=== PATIENT | female | born 1975 | race American Indian/Alaskan Native ===

== ENCOUNTER 2016-09-01 21:58 | Emergency (ER) | payer MEDICAID ==
[2016-09-01 22:41] VITALS: BP 141/96
[2016-09-01 23:26] LABS: Anion Gap 18 mmol/L; Blood Urea Nitrogen 10 mg/dL (7-17); Calcium 9.3 mg/dL (8.4-10.2); Carbon Dioxide 23 mmol/L (22-30); Chloride 100.2 mmol/L (98-107); Glucose 102 mg/dL (65-100); Potassium 3.7 mmol/L (3.6-5.0); Sodium 137 mmol/L (137-145)
[2016-09-01 23:30] LABS: Eosinophils % (Auto) 1.9 % (0.0-4.3); Hematocrit 24.8 % (30.3-42.9); Hemoglobin 7.6 gm/dl (10.1-14.3); Mean Corpuscular HGB Conc 31 % (30-34); Mean Corpuscular Hemoglobin 19 pg (28-32); Mean Corpuscular Volume 63 fl (79-97); Platelet Count 432 K/mm3 (140-440); Red Blood Count 3.93 M/mm3 (3.65-5.03); Red Cell Distribution Width 18.4 % (13.2-15.2); White Blood Count 7.4 K/mm3 (4.5-11.0)
--- NOTE | 2016-09-03 19:59 | ED Elopement Review ---
ED Pt Elopement review - Results review Lab results: Laboratory Tests 09/01/16 09/01/16 22:48 22:48 WBC 7.4 RBC 3.93 Hgb 7.6 L Hct 24.8 L MCV 63 L MCH 19 L MCHC 31 RDW 18.4 H Plt Count 432 Lymph % (Auto) 32.4 Harper % (Auto) 5.6 Eos % (Auto) 1.9 Baso % (Auto) 0.0 Lymph # 2.4 Harper # 0.4 Eos # 0.1 Baso # 0.0 Seg Neutrophils % 60.1 Seg Neutrophils # 4.5 Sodium 137 Potassium 3.7 Chloride 100.2 Carbon Dioxide 23 Anion Gap 18 BUN 10 Creatinine 0.8 Estimated GFR > 60 BUN/Creatinine Ratio 12.50 Glucose 102 H Calcium 9.3 - Call Back decision Pt Call Back Decision: No action required
== END 2016-09-02 04:40 | disposition left against medical advice (07) ==
LOC: ED 21:58
DX: R42 Dizziness and giddiness (principal); L50.9 Urticaria, unspecified; Z53.21 Procedure and treatment not carried out due to patient leaving prior to being seen by health care provider
CPT/HCPCS: 36415; 80048; 85025

== ENCOUNTER 2018-09-06 22:50 | Emergency (ER) | payer MEDICAID ==
[2018-09-07 00:03] VITALS: BP 160/116
== END 2018-09-07 01:30 | disposition left against medical advice (07) ==
LOC: ED 22:50
DX: M79.89 Other specified soft tissue disorders (principal); Z53.21 Procedure and treatment not carried out due to patient leaving prior to being seen by health care provider